=== PATIENT | male | born 1950 | race Caucasian/White ===

== ENCOUNTER → 2016-12-03 | Outpatient (CLI) | payer MEDICARE, OTHER ==
--- NOTE | 2016-12-03 12:13 | RAD ---
Indication history of pneumonia. Found on recent CT. PA and lateral views of the chest were obtained. Comparison is made to an examination August 31, 2014. There are suspect background changes of emphysema or fibrosis. Best demonstrated on the frontal image is a patchy infiltrate in the left mid lung which would be compatible with an inflammatory focus. A consolidated pneumonia in the right lung is not seen. Significant pleural fluid is not present. There is no pneumothorax. IMPRESSION: Patchy infiltrate in the left midlung compatible with a focal area of pneumonia
== END | disposition home or self-care (01) ==
LOC: DXRADRC 11:26
PROVIDERS: ATTEND Nurse Practitioner Family
DX: J18.9 Pneumonia, unspecified organism (principal)
CPT/HCPCS: 71020

== ENCOUNTER → 2016-12-05 | Outpatient (CLI) | payer MEDICARE, OTHER ==
[2016-12-05] MEDS: IOHEXOL 300 MG/ML 75 ML VIAL. IV ONE (10:32)
--- NOTE | 2016-12-05 11:41 | RAD ---
CTA of the chest with contrast, 12/05/2016: History: Shortness of breath, elevated d-dimer Multidetector CT imaging was performed following an IV bolus injection of iodinated contrast material. Multiplanar reconstructions were produced including coronal MIP images. The pulmonary arteries are suboptimally opacified on this study. No filling defects are seen in the main or lobar pulmonary arteries to suggest pulmonary emboli. The smaller pulmonary arteries are less clearly defined due to suboptimal opacification and artifacts. No definite pulmonary emboli are seen. The thoracic aorta is of normal caliber. The heart is mildly enlarged. There is a small amount of fluid in the superior pericardial recesses. No mediastinal or hilar adenopathy is seen. There are patchy groundglass type opacities in both lungs. There appear to be underlying emphysematous changes. There are mild airspace opacities in the left lower chest involving primarily the lower lobe. Mild interlobular septal thickening is present. There is a trace amount of bilateral pleural fluid. IMPRESSION: 1. No central pulmonary emboli are identified, although the pulmonary arteries are suboptimally delineated due to technical factors. 2. Emphysema. 3. Mild patchy bilateral ground glass opacities are nonspecific but may be due to fibrosis or mild pulmonary edema. 4. Slightly more dense left lower chest air space opacities are compatible with mild pulmonary edema versus pneumonia. 5. Trace bilateral pleural effusions. PQRS Compliance Statement: One or more of the following individualized dose reduction techniques were utilized for this examination: 1. Automated exposure control 2. Adjustment of the mA and/or kV according to patient size 3. Use of iterative reconstruction technique
== END | disposition home or self-care (01) ==
LOC: CT 09:37
PROVIDERS: ATTEND Nurse Practitioner Family
DX: J43.9 Emphysema, unspecified (principal); I10 Essential (primary) hypertension; R91.8 Other nonspecific abnormal finding of lung field
CPT/HCPCS: 71275; Q9967

== ENCOUNTER → 2016-12-10 | Outpatient (CLI) | payer MEDICARE, OTHER ==
--- NOTE | 2016-12-10 15:34 | RAD ---
Exam: PA and lateral chest radiograph History: Pneumonia. Comparison: 12/03/2016. Findings: Cardiac silhouette appears within normal limits for size. No pneumothorax is seen. Small bilateral pleural effusions are present. Patchy bilateral infiltrates, more evident on the left, are again seen.. Impression: 1. No significant interval change in bilateral infiltrates. 2. Small bilateral pleural effusions.
== END | disposition home or self-care (01) ==
LOC: DXRAD 15:13
PROVIDERS: ATTEND Nurse Practitioner Family
DX: J18.9 Pneumonia, unspecified organism (principal); J90 Pleural effusion, not elsewhere classified
CPT/HCPCS: 71020

== ENCOUNTER → 2017-08-08 | Outpatient (CLI) | payer MEDICARE, OTHER ==
[~2017-08-08] MED LIST: IOHEXOL 300 MG/ML 75 ML VIAL. IV ONE
[2017-08-08 11:11] LABS: CALCIUM 8.7 mg/dL (8.5-10.1); CREATININE 0.9 mg/dL (0.7-1.3); GFR 84.2; POTASSIUM 3.8 mmol/L (3.5-5.1)
--- NOTE | 2017-08-08 12:00 | RAD ---
CT scan of the abdomen and pelvis with contrast 08/08/2017 Clinical history: Renal cysts and hydronephrosis. Technique: After the intravenous administration of 75 cc of Omnipaque 300, contiguous, 5 mm axial sections were obtained through the abdomen and pelvis. One or more of the following individualized dose reduction techniques were utilized for this study: 1. Automated exposure control. 2. Adjustment of the mA and/or kV according to patient size. 3. Use of iterative reconstruction technique. Findings: No previous imaging studies are available for comparison. Images through the lung bases demonstrate mild cardiomegaly. Emphysematous changes are seen involving both lower lobes. Dependent subsegmental atelectasis is seen involving both lower lobes. A 1.7 cm rounded low-attenuation lesion is seen involving the dome of the liver. A 3 mm rounded low-attenuation lesion is seen involving the superior aspect of the left lobe of the liver. These likely represent cysts. The spleen, pancreas, and adrenal glands are within normal limits. Rounded low-attenuation lesions are seen involving both kidneys. These measure 1.2 to 6.2 cm in size. They likely represent cysts. No additional abnormality of either kidney is seen. There is no evidence of hydronephrosis. The abdominal aorta tapers normally. The gallbladder is contracted. No free fluid or free air is seen within the abdomen. There is no evidence of bowel obstruction. The appendix is not visualized. No inflammatory changes are seen surrounding the cecum. Images through the pelvis demonstrate the urinary bladder distended with urine. The prostate gland is enlarged likely related to BPH. Multiple diverticula are seen involving the sigmoid colon. No inflammatory changes are seen in the adjacent fat. No free fluid is seen. Bilateral spondylolysis is seen at L5. Grade 1 spondylolisthesis of L5 in relation S1 is noted. Degenerative changes are seen involving the lower thoracic and throughout the lumbar spine. Impression: No acute abnormality is seen.
== END | disposition home or self-care (01) ==
LOC: CT 10:21
PROVIDERS: ATTEND Urology
DX: N28.1 Cyst of kidney, acquired (principal); I51.7 Cardiomegaly; K76.9 Liver disease, unspecified; N40.0 Benign prostatic hyperplasia without lower urinary tract symptoms; K57.30 Diverticulosis of large intestine without perforation or abscess without bleeding; M47.895 Other spondylosis, thoracolumbar region; M43.17 Spondylolisthesis, lumbosacral region
CPT/HCPCS: 36415; 74177; 80048; Q9967

== ENCOUNTER → 2018-07-01 | Outpatient (CLI) | payer MEDICARE, OTHER ==
[~2018-07-01] MED LIST changes: +ALBU2.5V14 NEB; +ALBU8.5H8 INH; +AMLO10TA4 PO; +ASPI81TA50 PO; +ATOR10TA PO; +B12/1TAB PO; +CELE200C PO; +CHOL10003 PO; +DOXA8TAB2 PO; +FINA5TAB4 PO; +FOLI1TAB16 PO; -IOHEXOL 300 MG/ML 75 ML VIAL. IV ONE; +IRON1CAP17 PO; +LOSA100T2 PO; +METF500T16 PO; +OMEG-33 PO; +ORPH-16 PO; +TRAZ-85 PO
--- NOTE | 2018-07-02 10:53 | RAD ---
MR#: [id number] Date of Study: 07/01/2018 Ordering Physician: JASIEL SEE, Referring Physician: JASIEL SEE, Tech: FOX White, RDMS, RTR APPROVED REPORT Bilateral Lower Extremity Venous Study for DVT Patient Location: OUT-PATIENT Indications Lower Extremity Pain: Grayscale images of the bilateral lower extremity deep veins do not reveal any obvious evidence of th rombus. There is diffuse saphenous edema noted in the bilateral calves. Color Doppler imaging reveals normal spectral waveforms of the common femoral, popliteal, superficial femoral veins. The below-kne e veins were not well visualized but appear to be grossly compressible. Incidental note is made of a left groin lymph node measuring 3.7 x 1.2 x 2 cm. Clinical correlation r ecommended Risk Factors Obesity Critical Notification Critical Value: No <Conclusion> 1. No clear evidence of DVT in the bilateral lower extremities 2. Incidental finding of a left groin lymph node measuring 3.7 x 1.2 x 2 cm, recommend clinical corre lation and routine follow-up imaging Signed by : Ayad Jaramillo, Electronically Approved : 07/02/2018 10:52:16
--- NOTE | 2018-07-02 10:56 | RAD ---
MR#: [id number] Date of Study: 07/01/2018 Ordering Physician: JASIEL SEE, Referring Physician: JASIEL SEE, Tech: FOX White, RDMS, RTR APPROVED REPORT Patient Location : OUT-PATIENT Indications Lower Extremity Pain : Grayscale images of the bilateral lower ext saphenofemoral junctions do not reveal any evidence of th rombus. The greater and lesser saphenous veins appear to be patent and do not demonstrate any evidenc e of reflux on Doppler and spectral waveforms. Risk Factors Obesity Critical Notification Critical Value: No <Conclusion> 1. Negative for reflux in the bilateral greater and lesser saphenous veins. Signed by : Ayad Jaramillo, Electronically Approved : 07/02/2018 10:56:00
== END | disposition home or self-care (01) ==
LOC: US 07:52
PROVIDERS: ATTEND Internal Medicine Cardiovascular Disease
DX: R60.0 Localized edema (principal); R19.09 Other intra-abdominal and pelvic swelling, mass and lump; E66.9 Obesity, unspecified
CPT/HCPCS: 93970

== ENCOUNTER → 2019-06-03 | Outpatient (CLI) | payer MEDICARE, OTHER ==
[~2019-06-03] MED LIST changes: +ALBU2.5V8 INH; -ALBU8.5H8 INH; +TRAZ-120 PO; -TRAZ-85 PO
--- NOTE | 2019-06-03 15:28 | RAD ---
Examination: CT LOW DOSE LUNG SCREENING History: Lung nodule Comparison/Correlation: 12/05/2016 CTA of the chest, 08/08/2017 CT abdomen and pelvis with contrast Findings: Axial images of the chest were obtained without contrast according to low dose protocol. Sagittal and coronal reformatted images were provided. Extensive emphysematous involvement of the lung adkins is noted. Minimal right costophrenic sulcus linear scarring or atelectasis is present. Minimal anterior right middle lobe basilar atelectasis is present. No suspicious pulmonary nodule or mass. No enlarged thoracic lymph nodes. No pleural or pericardial effusion. No significant coronary arterial calcification. Left renal superior pole cyst is partially visualized. Right renal superior pole 2.8 cm diameter well-circumscribed lesion with Hounsfield units of 25 is present. It is not fully included inferior aspect for the purposes of this exam. Bony structures are unremarkable for the patient's age. Impression: Lung rads category 1-negative. Continue annual low-dose lung cancer screening CT evaluation. Emphysema. There is a renal lesion which is greater than simple cyst density. It may represent a mildly complex cyst. It is only partially visualized but appears stable upon correlation with 08/08/2017 CT abdomen and pelvis with contrast exam. Continued attention on follow-up future exams recommended. PQRS Compliance Statement: One or more of the following individualized dose reduction techniques were utilized for this examination: 1. Automated exposure control 2. Adjustment of the mA and/or kV according to patient size 3. Use of iterative reconstruction technique Electronically signed by: Aki Cr MD (06/03/2019 3:25 PM) [facility]
== END | disposition home or self-care (01) ==
LOC: CT 13:51
PROVIDERS: ATTEND Internal Medicine Pulmonary Disease
DX: Z12.2 Encounter for screening for malignant neoplasm of respiratory organs (principal); J43.9 Emphysema, unspecified; N28.1 Cyst of kidney, acquired; N28.89 Other specified disorders of kidney and ureter; Z87.891 Personal history of nicotine dependence
CPT/HCPCS: G0297